=== PATIENT | female | born 1965 | race Caucasian/White ===

== ENCOUNTER 2021-08-02 21:41 | Inpatient (IN) ==
[2021-08-02] MEDS ORDERED: IPRATROPIUM/ALBUTEROL 3 ML AMPUL.NEB NEB ONE (22:12)
--- NOTE | 2021-08-02 22:18 | Emergency Department Note ---
HPI General Chief complaint: Shortness of Breath/Dyspnea Stated complaint: shortness of breath Time Seen by Provider: 08/02/21 21:46 Source: patient Mode of arrival: ambulatory Limitations: no limitations History of Present Illness HPI Narrative: Narrative: 55 yo F w/ h/o asthma, DM2, HTN, HLD, p/w SOB. She reports that over the past few days she has had constant SOB which is worse w/ exertion and laying flat, a nd incompletely relieved w/ nebulizers. She notes that this seems to have been triggered by house painting in her home. Her nebs are somewhat helpful but she notes that her duonebs have . She was seen at urgent care yesterday and Dx'd w/ an asthma exacerbation and started on steroids and abx. She reports that her Sx today are typical for an asthma exacerbation for her. She denies CP, peripheral edema, F/C/cough, immobilization, long distance travel, recent surgery. Related Data Home Medications Medication Instructions Recorded Confirmed omega-3 acid ethyl esters 1 gram 1 cap PO QAM 08/03/21 08/03/21 capsule Previous Rx's Medication Instructions Recorded albuterol sulfate 90 mcg/actuation See Rx Instructions .ROUTE 11/25/19 aerosol inhaler .COMPLEX #8.5 unknown measurement unit code: gram atorvastatin 20 mg tablet 20 mg PO QHS #90 tab 05/17/21 metformin 500 mg tablet See Rx Instructions .ROUTE 05/31/21 .COMPLEX #60 tab bupropion HCl 300 mg 24 hr tablet, 300 mg PO QAM #30 tab 06/14/21 extended release omeprazole 20 mg capsule,delayed 20 mg PO QDAY #90 cap 06/28/21 release lisinopril 20 mg tablet 20 mg PO QDAY #30 tab 07/20/21 fluticasone 500 mcg-salmeterol 50 1 inh INHALATION BID #60 each 07/26/21 mcg/dose blistr powdr for inhalation amoxicillin 875 mg-potassium 1 tab PO BID 5 Days #10 tab 08/01/21 clavulanate 125 mg tablet prednisone 50 mg tablet 50 mg PO QDAY 5 Days #5 tab 08/01/21 ipratropium 0.5 mg-albuterol 3 mg 3 ml INHALATION Q4H PRN #15 ml 08/02/21 (2.5 mg base)/3 mL nebulization soln Allergies Allergy/AdvReac Type Severity Reaction Status Date / Time mold Allergy Difficulty Verified 08/02/21 21:46 Breathing animals Allergy Itching Uncoded 07/22/21 13:04 Review of Systems ROS ROS Narrative: Narrative: All systems ED: reviewed and negative except as stated. [facility] Narrative Patient History Narrative: Narrative: Medical/Surgical/Family History All Active Problems (Updated 08/03/21 @ 00:36 by Matthew Lara MD) Acute dyspnea (Acute) Asthma exacerbation (Acute) Asthma exacerbation (Acute) Back pain of lumbar region with sciatica (Acute) Elevated liver enzymes (Acute) Elevated liver enzymes (Acute) Type 2 diabetes mellitus (Acute) Anxiety (Acute) Obesity (BMI 30-39.9) (Acute) Generalized anxiety disorder with panic attacks (Acute) Allergies (Chronic) Hyperlipidemia (Chronic) Hypertension (Chronic) Abdominal pain, RUQ (Chronic) Cigarette smoker motivated to quit (Chronic) GERD (gastroesophageal reflux disease) (Chronic) Psoriasis of scalp (Chronic) Epidermal inclusion cyst (Chronic) Loose stools (Chronic) Fatty liver (Chronic) Abdominal pain (Chronic) Sinus infection (Chronic) Hay fever (Chronic) High cholesterol (Chronic) Asthma (Chronic) Left pulmonary infiltrate on CXR (Chronic) Acute asthma exacerbation (Chronic) Viral upper respiratory tract infection (Chronic) Sidra infection (Chronic) Sinusitis, acute (Chronic) Medical History Abdominal pain Abdominal pain, RUQ Acute asthma exacerbation Allergies Asthma Sidra infection Cigarette smoker motivated to quit Combined abdominal and pelvic pain Dermatitis Right lower leg Epidermal inclusion cyst Fatty liver GERD (gastroesophageal reflux disease) Omeprazole x 3 months 06/28/21 Hay fever High cholesterol Hyperlipidemia TRIGs 314, adding fenofibrate to atorvastatin 06/28/21 Diet handouts provided, encourage low fat, exercise, weight reduction 06/28/21 Hypertension Trial of lisinopril 10mg daily x 3 weeks 06/28/21 Intermittent chest pain Left pulmonary infiltrate on CXR Loose stools Pneumonia Prediabetes Psoriasis of scalp Shingles outbreak ULQ, posterior Sinus infection Sinusitis, acute Viral upper respiratory tract infection Surgical History History of colonoscopy History of colonoscopy with polypectomy 07/17/2019 History of esophagogastroduodenoscopy (EGD) 07/17/2019 Family History Mother Heart disease Diabetes Asthma Emphysema lung Father Diabetes Heart disease Grandmother Heart disease Maternal Grandfather Asthma Paternal Social History Smoking Status: Former smoker Alcohol Intake Frequency: does not drink Substance Use: does not use Exam Narrative Narrative: Narrative: General Limitations: no limitations General appearance: Present alert and in no apparent distress Head Head: Present atraumatic and normocephalic ENT ENT: Present normal oropharynx and mucous membranes moist Chest Chest: Present normal inspection and symmetric chest wall rise Respiratory Respiratory: Present wheezes (B/L); Absent respiratory distress or accessory muscle use Cardiovascular Cardiovascular: Present regular rate, normal rhythm, +S1, +S2 and other (2+ B/L radial pulses); Absent systolic murmur or diastolic murmur Extremities Extremities: Absent pedal edema Neurological Neurological: Present alert and oriented X3 Psychiatric Psychiatric: Present normal affect Skin Skin: Present warm (WNL) and dry Course Vital Signs Vital signs: Vital Signs Temperature 100.2 F H 08/02/21 21:41 Pulse Rate 117 H 08/02/21 21:41 Respiratory Rate 20 08/02/21 21:41 Blood Pressure 132/66 08/02/21 21:41 Pulse Oximetry (%) 93 08/02/21 21:41 Temperature 96.7 F L 08/03/21 02:14 Pulse Rate 85 08/03/21 02:14 Respiratory Rate 16 08/03/21 02:14 Blood Pressure 133/66 08/03/21 02:14 Pulse Oximetry (%) 96 08/03/21 02:14 [facility] MDM Narrative Medical decision making narrative: 55 yo F w/ h/o asthma, DM2, HTN, HLD, p/w SOB. DDx- PE, ACS, PTX, PNA, asthma exacerbation Pt presented stable, w/ sats in the low 90s, in NAD. Her exam was notable for B/L wheezing, c/w asthma exacerbation. Wells score was 0. SOB as a manifestation of ACS was much less likely than asthma. There was no pulmonary or peripheral edema to suggest CHF. CXR showed no PNA or PTX. Overall her evaluation was c/w asthma exacerbation. I started Tx w/ duonebs but despite this her SaO2 actually trended down to the high 80s. I thus added on IV solumedrol but we could not wean her off O2. Thus I d/w Dr Luna who accepted her for admission. Lab Data Result diagrams: 08/02/21 23:08 Labs: Lab Results 08/02/21 08/02/21 Range/Units 23:08 23:08 WBC 10.7 (4.5-11.0) K/mcL RBC 4.69 (3.59-5.38) M/mcL Hgb 13.1 (11.2-15.7) g/dL Hct 39.7 (34.1-44.9) % POC Hct 39 (36-48) % MCV 84.6 (80.0-100.0) fL MCH 27.9 (26.0-34.0) pg MCHC 33.0 (31.0-36.0) g/dL RDW 13.0 (11.5-14.5) % Plt Count 289 (140-440) K/mcL MPV 9.6 (7.4-10.4) fL Neut % (Auto) 76.7 (38.0-78.0) % Lymph % (Auto) 17.6 (15.5-49.0) % [place] % (Auto) 5.1 (1.0-12.0) % Eos % (Auto) 0.1 (0.0-7.0) % Baso % (Auto) 0.5 (0.0-2.0) % Lymph # (Auto) 1.89 (1.50-4.80) K/mcL [place] # (Auto) 0.55 (0.10-0.90) K/mcL Eos # (Auto) 0.01 (0.00-0.70) K/mcL Baso # (Auto) 0.05 (0.00-0.30) K/mcL Absolute Neutrophils 8.21 H (1.80-8.00) K/mcL POC Sodium 133 (133-145) mEq/L POC Potassium 4.2 (3.3-5.1) mEql/L POC Chloride 100 (96-108) mEq/L POC Total CO2 24 (22-30) mmol/L POC BUN 17 (6-20) mg/dL POC Creatinine 1.0 (0.6-1.2) mg/dL POC Glucose 201 H (70-105) mg/dL POC WB Ioniz Calcium 1.09 L (1.16-1.32) mmEq/L ED POC Tests ED POC Tests: KAREL - Influenza A Negative KAREL - Influenza B Negative KAREL - SARS Antigen Negative Radiology Data Radiology results reviewed: Yes I reviewed the patient's radiology results. Discharge Plan Patient/Caregiver Discharge Instructions Pt seen by [employer] [employer]SULTANT/PA only: No Clinical Impression: Acute dyspnea, Asthma exacerbation Patient Disposition: [facility] Condition: Fair Discharge Date/Time: 08/03/21 02:08
[2021-08-02] MEDS ORDERED: methylPREDNISolone SOD SUCC 125 MG/2 ML VIAL IV ONE (22:50)
[2021-08-02 23:19] LABS: POC Blood Urea Nitrogen 17 mg/dL (6-20); POC CO2 24 mmol/L (22-30); POC Calcium, Ionized 1.09 mmEq/L (1.16-1.32); POC Chloride 100 mEq/L (96-108); POC Glucose, Random 201 mg/dL (70-105); POC Hematocrit 39 % (36-48); POC Potassium 4.2 mEql/L (3.3-5.1); POC Sodium 133 mEq/L (133-145)
[2021-08-03 00:13] LABS: Basophils # (Auto) 0.05 K/mcL (0.00-0.30); Basophils % (Auto) 0.5 % (0.0-2.0); Eosinophils # (Auto) 0.01 K/mcL (0.00-0.70); Eosinophils % (Auto) 0.1 % (0.0-7.0); Hematocrit 39.7 % (34.1-44.9); Hemoglobin 13.1 g/dL (11.2-15.7); Lymphocytes # (Auto) 1.89 K/mcL (1.50-4.80); Lymphocytes % (Auto) 17.6 % (15.5-49.0); Mean Cell Volume 84.6 fL (80.0-100.0); Mean Platelet Volume 9.6 fL (7.4-10.4); Monocytes # (Auto) 0.55 K/mcL (0.10-0.90); Monocytes % (Auto) 5.1 % (1.0-12.0); Neutrophils % (Auto) 76.7 % (38.0-78.0); Platelet Count 289 K/mcL (140-440); RBC 4.69 M/mcL (3.59-5.38); WBC 10.7 K/mcL (4.5-11.0)
[2021-08-03] MEDS ORDERED: IPRATROPIUM/ALBUTEROL 3 ML AMPUL.NEB NEB PRN (02:26)
--- NOTE | 2021-08-03 07:46 | XRay Report ---
HISTORY: Chest pain, asthma, short of breath FINDINGS: Right diaphragm is mildly elevated. This is a chronic stable finding. There is no evidence of pneumonia, mass or fibrosis. The heart size mediastinum and dianne are normal. There has been no change since 05/25/21. IMPRESSION: Normal exam Interpreted and Authenticated by: Gaston Hernandez 08/03/21
[2021-08-03] MEDS ORDERED: ALBUTEROL SULFATE 200 PUFF INHALER INH PRN ×2 (09:00→09:06)
[2021-08-03] MEDS ORDERED: guaiFENesin/DEXTROMETHORPHAN ORAL SOL PO PRN (09:06)
[2021-08-03] MEDS ORDERED: ACETAMINOPHEN 325 MG TABLET PO PRN (09:06)
[2021-08-03] MEDS ORDERED: ONDANSETRON 4 MG/2 ML VIAL IV PRN (09:06)
[2021-08-03] MEDS ORDERED: DEXTROSE 50% 50 ML VIAL IV PRN (09:06)
[2021-08-03] MEDS ORDERED: DEXTROSE 31 GM ORAL.SUSP PO PRN (09:06)
--- NOTE | 2021-08-03 09:07 | Internal Med History&Physical ---
HPI History of Present Illness Patient information: Note initiated : 08/03/21 at 9:06 am Service Date, if different from initiated Date: [] Patient: Nya Espitia a 55 y/o F admitted on 08/03/21 for shortness of breath. Chief Complaint: [] Chief complaint: shortness of breath History of present illness: Ms. Espitia is a 55 year old F history of asthma, type 2 diabetes mellitus, essential hypertension, mixed dyslipidemia, fatty liver disease, presenting with 1 week history of increasing shortness of breath and nonproductive cough. Last prior asthma exacerbation episode was years ago. Last , patient is started to notice increasing level of shortness of breath, chest tightness, nonproductive cough, wheezing after her pain in the house. The symptoms get worse on the following day after her continue to paint her house. She presented to urgent care 2 days ago and was being started on oral prednisone as well as rescue inhalers at which point she was using it every hour without much symptoms improved. As a result, she decided to come to our emergency room last night for further evaluations. Vital signs significant for mild tachypnea with rate of breathing in the mid 20s, with rest of the vital signs within normal limits. Labs were largely within normal limits. Dina negative. She was being placed on 3 L/min of supplemental oxygen and admission request was made for asthma exacerbation management. Constitutional Constitutional: Absent chills, excessive sweating, fatigue, fever(s) or weakness EENT Eyes: Absent blurry vision, change in vision, loss of vision or other visual disturbances Ears: Absent decreased hearing or tinnitus Nose, mouth and throat: Absent abnormal hearing, dry mouth, headache(s), nasal congestion or sore throat Cardiovascular Cardiovascular: Absent chest pain, chest pain at rest, edema, irregular heart rhythm or palpatations Respiratory Respiratory: Present cough, dyspnea and wheezing; Absent dyspnea on exertion or excessive phlegm production Gastrointestinal Gastrointestinal: Absent abdominal pain, constipation, diarrhea, nausea or vomiting Musculoskeletal Musculoskeletal: Absent back pain, deformity, limited range of motion, muscle cramps, muscle weakness or numbness Integumentary Integumentary: Absent lesions, rash or wounds Neurological Neurological: Absent focal weakness, headache(s) or numbness Psychiatric Psychiatric: Absent anxiety, depression or hallucinations PFSH PFSH All Active Problems (Updated 08/03/21 @ 00:36 by Matthew Lara MD) Acute dyspnea (Acute) Asthma exacerbation (Acute) Asthma exacerbation (Acute) Back pain of lumbar region with sciatica (Acute) Elevated liver enzymes (Acute) Elevated liver enzymes (Acute) Type 2 diabetes mellitus (Acute) Anxiety (Acute) Obesity (BMI 30-39.9) (Acute) Generalized anxiety disorder with panic attacks (Acute) Allergies (Chronic) Hyperlipidemia (Chronic) Hypertension (Chronic) Abdominal pain, RUQ (Chronic) Cigarette smoker motivated to quit (Chronic) GERD (gastroesophageal reflux disease) (Chronic) Psoriasis of scalp (Chronic) Epidermal inclusion cyst (Chronic) Loose stools (Chronic) Fatty liver (Chronic) Abdominal pain (Chronic) Sinus infection (Chronic) Hay fever (Chronic) High cholesterol (Chronic) Asthma (Chronic) Left pulmonary infiltrate on CXR (Chronic) Acute asthma exacerbation (Chronic) Viral upper respiratory tract infection (Chronic) Sidra infection (Chronic) Sinusitis, acute (Chronic) Medical History Abdominal pain Abdominal pain, RUQ Acute asthma exacerbation Allergies Asthma Sidra infection Cigarette smoker motivated to quit Combined abdominal and pelvic pain Dermatitis Right lower leg Epidermal inclusion cyst Fatty liver GERD (gastroesophageal reflux disease) Omeprazole x 3 months 06/28/21 Hay fever High cholesterol Hyperlipidemia TRIGs 314, adding fenofibrate to atorvastatin 06/28/21 Diet handouts provided, encourage low fat, exercise, weight reduction 06/28/21 Hypertension Trial of lisinopril 10mg daily x 3 weeks 06/28/21 Intermittent chest pain Left pulmonary infiltrate on CXR Loose stools Pneumonia Prediabetes Psoriasis of scalp Shingles outbreak ULQ, posterior Sinus infection Sinusitis, acute Viral upper respiratory tract infection Surgical History History of colonoscopy History of colonoscopy with polypectomy 07/17/2019 History of esophagogastroduodenoscopy (EGD) 07/17/2019 Family History Mother Heart disease Diabetes Asthma Emphysema lung Father Diabetes Heart disease Grandmother Heart disease Maternal Grandfather Asthma Paternal Social History marital status: occupational status: employed occupation: Teacher other: 3 Children physical activity: none alcohol intake frequency: does not drink substance use type: does not use seatbelt use: always MEDS/ALLERGIES Home Medications and Allergies Home Medications Medication Instructions Recorded Confirmed Type albuterol sulfate 90 mcg/actuation See Rx Instructions .ROUTE 11/25/19 08/03/21 Rx aerosol inhaler .COMPLEX #8.5 unknown measurement unit code: gram atorvastatin 20 mg tablet 20 mg PO QHS #90 tab 05/17/21 08/03/21 Rx metformin 500 mg tablet See Rx Instructions .ROUTE 05/31/21 08/03/21 Rx .COMPLEX #60 tab bupropion HCl 300 mg 24 hr tablet, 300 mg PO QAM #30 tab 06/14/21 08/03/21 Rx extended release omeprazole 20 mg capsule,delayed 20 mg PO QDAY #90 cap 06/28/21 08/03/21 Rx release lisinopril 20 mg tablet 20 mg PO QDAY #30 tab 07/20/21 08/03/21 Rx fluticasone 500 mcg-salmeterol 50 1 inh INHALATION BID #60 each 07/26/21 08/03/21 Rx mcg/dose blistr powdr for inhalation amoxicillin 875 mg-potassium 1 tab PO BID 5 Days #10 tab 08/01/21 08/03/21 Rx clavulanate 125 mg tablet prednisone 50 mg tablet 50 mg PO QDAY 5 Days #5 tab 08/01/21 08/03/21 Rx ipratropium 0.5 mg-albuterol 3 mg 3 ml INHALATION Q4H PRN #15 ml 08/02/21 08/03/21 Rx (2.5 mg base)/3 mL nebulization soln omega-3 acid ethyl esters 1 gram 1 cap PO QAM 08/03/21 08/03/21 History capsule Allergies Allergy/AdvReac Type Severity Reaction Status Date / Time mold Allergy Intermediate Difficulty Verified 08/03/21 06:34 Breathing EXAM Constitutional Vitals: Temp Pulse Resp BP Pulse Ox 36.7 C 85 20 136/72 97 08/03/21 07:47 08/03/21 07:47 08/03/21 07:47 08/03/21 07:47 08/03/21 07:47 General appearance: average body habitus, cooperative and mild distress Head Head exam: Present atraumatic and normocephalic Eye Eye exam: Present EOMI and PERRL ENT ENT exam: Present mucous membranes moist, normal exam and normal external ear exam Additional comments: Nasal cannula in place Neck Neck exam: Present normal inspection; Absent lymphadenopathy, tenderness or thyromegaly Respiratory Respiratory exam: Present decreased breath sounds and wheezes; Absent accessory muscle use or respiratory distress Cardiovascular Cardiovascular exam: Present normal rate and rhythm; Absent JVD GI/Abdominal GI/Abdominal exam: Present normal bowel sounds and soft; Absent organomegaly or tenderness Extremities Exam Extremities exam: Present full ROM, normal capillary refill and normal inspection; Absent tenderness Neurological Exam Neurological exam: Present alert, CN II-XII intact and oriented X3; Absent motor sensory deficit Psychiatric Psychiatric exam: Present normal affect and normal mood; Absent anxious or depressed Skin Skin exam: Present dry and intact DATA Data Completed and Pending Labs: Labs from last 24 hours 08/02/21 08/02/21 23:08 23:08 WBC 10.7 RBC 4.69 Hgb 13.1 Hct 39.7 POC Hct 39 MCV 84.6 MCH 27.9 MCHC 33.0 RDW 13.0 Plt Count 289 MPV 9.6 Neut % (Auto) 76.7 Lymph % (Auto) 17.6 [place] % (Auto) 5.1 Eos % (Auto) 0.1 Baso % (Auto) 0.5 Lymph # (Auto) 1.89 [place] # (Auto) 0.55 Eos # (Auto) 0.01 Baso # (Auto) 0.05 Absolute Neutrophils 8.21 H POC Sodium 133 POC Potassium 4.2 POC Chloride 100 POC Total CO2 24 POC BUN 17 POC Creatinine 1.0 POC Glucose 201 H POC WB Ioniz Calcium 1.09 L A/P Assessment and plan (1) Asthma exacerbation: Status: Acute (2) Type 2 diabetes mellitus: Status: Acute Comment: A1c 6.2% 06/28/21 Qualifiers: Diabetes mellitus residential insulin use: without residential use Diabetes mellitus complication status: without complication Qualified Code(s): E11.9 - Type 2 diabetes mellitus without complications (3) Anxiety: Status: Acute (4) Hyperlipidemia: Status: Chronic Comment: TRIGs 314, adding fenofibrate to atorvastatin 06/28/21 Diet handouts provided, encourage low fat, exercise, weight reduction 06/28/21 Qualifiers: Hyperlipidemia type: mixed hyperlipidemia Qualified Code(s): E78.2 - Mixed hyperlipidemia (5) GERD (gastroesophageal reflux disease): Status: Chronic Comment: Omeprazole x 3 months 06/28/21 (6) Hypertension: Status: Chronic Comment: Trial of lisinopril 10mg daily x 3 weeks 06/28/21 Qualifiers: Hypertension type: essential hypertension Qualified Code(s): I10 - Essential (primary) hypertension Narrative A/P Narrative: Assessment and Plans: 1. Asthma exacerbation: Inpatient med surg Supplemental oxygen therapy titrate to achieve spo2>=92%, currently on 3L/min DuoNEB NEB scheduled Albuterol INH PRN wheezing Prednisone Robitussin DM PRN cough 2. Essential HTN: Lisinopril 3. Mixed dyslipidemia: Continue statin therapy 4. Anxiety: Bupropion 5. T2DM: HgA1c Hold Metformin Low dose sliding scale insulin AC HS Accu Chek AC HS Hypoglycemia protocol Diabetic diet 6. GERD: Continue oral PPI from home regimen GI ppx: Continue oral PPI from home regimen DVT ppx: Lovenox Code status: Full Prognosis: guarded Disposition: inpatient med surg Time Spent With Patient Time: Total time spent is greater than 50% in coordination of care (as documented) at patient's floor/unit and/or counseling patient: Total time spent with greater than 50% in coordination of care (as documented) at patient's floor/unit and/or counseling patient:: 35 - 50 minutes QUALITY Stroke Symptom Onset Unknown: No VTE Deep Vein Thrombosis/Pulmonary Embolism Present on Admission: No
[2021-08-03] MEDS: IPRATROPIUM/ALBUTEROL 3 ML AMPUL.NEB NEB SCH ×3 (09:16→20:52)
[2021-08-03] MEDS: OMEPRAZOLE 20 MG CAPSULE PO SCH (09:27)
[2021-08-03] MEDS: LISINOPRIL 20 MG TABLET PO SCH (09:27)
[2021-08-03] MEDS: FLUTICASONE/SALMETEROL 500/50 INHALER #14 INH SCH ×2 (09:28→21:12)
[2021-08-03 09:50] LABS: Hemoglobin A1C 6.7 % Hgb (4.0-6.0)
[2021-08-03] MEDS: buPROPion 150 MG TAB.XL.24H PO SCH (11:00)
[2021-08-03] MEDS: INSULIN LISPRO 1 UNIT/0.01 ML UNIT SQ SCH ×3 (11:54→21:11)
[2021-08-03] MEDS: 0.9 % SODIUM CHLORIDE 10 ML SYRINGE IV SCH ×2 (17:03→21:11)
[2021-08-03] MEDS: ATORVASTATIN 20 MG TABLET PO SCH (21:11)
[2021-08-03] MEDS: SENNOSIDES 1 TABLET PO SCH (21:11)
[2021-08-03] MEDS: DOCUSATE SODIUM 100 MG CAPSULE PO SCH (21:12)
[2021-08-04] MEDS: ZOLPIDEM 5 MG TABLET PO PRN ×2 (00:51→21:34)
[2021-08-04] MEDS: 0.9 % SODIUM CHLORIDE 10 ML SYRINGE IV SCH ×3 (06:15→20:46)
[2021-08-04] MEDS: IPRATROPIUM/ALBUTEROL 3 ML AMPUL.NEB NEB SCH ×4 (07:39→21:18)
[2021-08-04] MEDS: INSULIN LISPRO 1 UNIT/0.01 ML UNIT SQ SCH ×4 (08:03→20:48)
[2021-08-04] MEDS: DOCUSATE SODIUM 100 MG CAPSULE PO SCH ×2 (08:06→20:46)
[2021-08-04] MEDS: FISH OIL 1,000 MG CAPSULE PO SCH (08:54)
[2021-08-04] MEDS: predniSONE 20 MG TABLET PO SCH (08:54)
[2021-08-04] MEDS: LISINOPRIL 20 MG TABLET PO SCH (08:54)
[2021-08-04] MEDS: OMEPRAZOLE 20 MG CAPSULE PO SCH (08:54)
[2021-08-04] MEDS: buPROPion 150 MG TAB.XL.24H PO SCH (08:55)
[2021-08-04] MEDS: ENOXAPARIN 40 MG/0.4 ML SYRINGE SQ SCH (08:57)
[2021-08-04] MEDS: FLUTICASONE/SALMETEROL 500/50 INHALER #14 INH SCH ×2 (10:04→20:48)
[2021-08-04] MEDS ORDERED: LORazepam 1 MG TABLET PO PRN (10:54)
--- NOTE | 2021-08-04 10:54 | Internal Med Progress Note ---
SUBJECTIVE Subjective Patient information: Note initiated : 08/04/21 at 10:53 am Service Date, if different from initiated Date: [] Patient: Nya Espitia a 55 y/o F admitted on 08/03/21 for shortness of breath. Chief Complaint: [] Interval history: Ms. Espitia is a 55 year old F history of asthma, type 2 diabetes mellitus, essential hypertension, mixed dyslipidemia, fatty liver disease, presenting with 1 week history of increasing shortness of breath and nonproductive cough. Last prior asthma exacerbation episode was years ago. Last , patient is started to notice increasing level of shortness of breath, chest tightness, nonproductive cough, wheezing after her pain in the house. The symptoms get worse on the following day after her continue to paint her house. She presented to urgent care 2 days ago and was being started on oral prednisone as well as rescue inhalers at which point she was using it every hour without much symptoms improved. As a result, she decided to come to our emergency room last night for further evaluations. Vital signs significant for mild tachypnea with rate of breathing in the mid 20s, with rest of the vital signs within normal limits. Labs were largely within normal limits. Dina negative. She was being placed on 3 L/min of supplemental oxygen and admission request was made for asthma exacerbation management. 08/04: On 0.5L/min oxygen therapy. c/o shortness of breath, chest tightness, nonproductive cough, wheezing. Denies anxiety or agitation. Denies fever or chills. Continue bronchodilators, Prednisone, supplemental oxygen therapy. Constitutional Vitals: Vital Signs Temp Pulse Resp BP Pulse Ox 36.3 C 87 14 119/66 96 08/04/21 07:36 08/04/21 07:39 08/04/21 07:39 08/04/21 07:36 08/04/21 07:39 Period Temp Pulse Resp BP Sys/Crisostomo Pulse Ox Last 24 Hr 36.3 C-37.1 C 71-103 14-20 114-129/61-79 92-100 Intake and Output 08/03/21 08/04/21 08/04/21 21:59 05:59 13:59 Intake Total 740 600 Output Total 600 Balance 740 0 Weight 85.82 kg Intake & Output: Intake & Output 08/03/21 08/04/2108/04/22 21:59 05:59 13:59 Intake Total 740 600 Output Total 600 Balance 740 0 Weight 85.82 kg Intake: Oral 740 600 Output: Void Amount 600 Other: Meal Dinner Percent of Meal Consumed 100% Feeding Ability Assist with Tray Set Up Urine Appearance Clear Urine Color Bright Yellow General appearance: average body habitus, cooperative and no acute distress Head Head exam: Present atraumatic and normal inspection Eye Eye exam: Present normal appearance ENT ENT exam: Present mucous membranes moist, normal exam and normal external ear exam Neck Neck exam: Present normal inspection Respiratory Respiratory exam: Present wheezes; Absent normal respiratory exam Cardiovascular Cardiovascular exam: Present normal rate and rhythm GI/Abdominal GI/Abdominal exam: Present normal bowel sounds Back Exam Back exam: Present normal inspection Neurological Exam Neurological exam: Present alert and oriented X3 Skin Skin exam: Present intact and warm OBJ DATA Labs CBC & Chem 7: 08/02/21 23:08 Labs: Abnormal Lab Results 08/02/21 08/02/21 08/02/21 23:08 23:08 23:08 Absolute Neutrophils 8.21 H POC Glucose 201 H Hemoglobin A1c 6.7 H POC WB Ioniz Calcium 1.09 L Meds: Medications Acetaminophen (Acetaminophen 325 Mg Tablet) 650 mg PO Q6HP PRN; Protocol PRN Reason: Per Pain Protocol/Fever > 101 Albuterol Sulfate (Albuterol Sulfate 200 Puff Inhaler) 1 puff INH Q2HP PRN PRN Reason: Shortness Of Breath Albuterol/Ipratropium (Ipratropium/Albuterol 3 Ml Ampul.Neb) 3 ml NEB Q4HP [facility] Last Admin: 08/04/21 07:39 Dose: 3 ml Documented by: Atorvastatin Calcium (Atorvastatin 20 Mg Tablet) 20 mg PO QHS [facility] Last Admin: 08/03/21 21:11 Dose: 20 mg Documented by: Bupropion HCl (Bupropion 150 Mg Tab.Xl.24h) 300 mg PO DAILY [facility] Last Admin: 08/04/21 08:55 Dose: 300 mg Documented by: Dextrose (Dextrose 50% 50 Ml Vial) 0 ml IV UD PRN PRN Reason: Per Sliding Scale Diagnostic Test (Pha) (Accu-Chek 1 Each Strip) 1 each FS ACHS [facility] Last Admin: 08/04/21 08:01 Dose: 1 each Documented by: Docusate Sodium (Docusate Sodium 100 Mg Capsule) 100 mg PO BID [facility] Last Admin: 08/04/21 08:06 Dose: Not Given Documented by: Enoxaparin Sodium (Enoxaparin 40 Mg/0.4 Ml Syringe) 40 mg SQ DAILY [facility] Last Admin: 08/04/21 08:57 Dose: 40 mg Documented by: Fish Oil (Fish Oil 1,000 Mg Capsule) 1,000 mg PO DAILY [facility] Last Admin: 08/04/21 08:54 Dose: 1,000 mg Documented by: Glucose (Dextrose 31 Gm Oral.Susp) 15 gm PO PRN PRN PRN Reason: Hypoglycemia Guaifenesin (Guaifenesin/Dextromethorphan Oral Shira) 10 ml PO Q4HP PRN PRN Reason: Cough Insulin Human Lispro (Insulin Lispro 1 Unit/0.01 Ml Unit) 0 unit SQ ACHS [facility]; Protocol Last Admin: 08/04/21 08:03 Dose: Not Given Documented by: Lisinopril (Lisinopril 20 Mg Tablet) 20 mg PO QDAY [facility] Last Admin: 08/04/21 08:54 Dose: 20 mg Documented by: Omeprazole (Omeprazole 20 Mg Capsule) 20 mg PO QDAY [facility] Last Admin: 08/04/21 08:54 Dose: 20 mg Documented by: Ondansetron HCl (Ondansetron 4 Mg/2 Ml Vial) 4 mg IV Q6HP PRN PRN Reason: Nausea And Vomiting Prednisone (Prednisone 20 Mg Tablet) 40 mg PO [facility] Last Admin: 08/04/21 08:54 Dose: 40 mg Documented by: Fluticasone/Salmeterol (Fluticasone/Salmeterol 500/50 Inhaler #14) 1 puff INH BID [facility] Last Admin: 08/04/21 10:04 Dose: 1 puff Documented by: Senna (Sennosides 1 Tablet) 2 tab PO [facility] Last Admin: 08/03/21 21:11 Dose: Not Given Documented by: Sodium Chloride (0.9 % Sodium Chloride 10 Ml Syringe) 10 ml IV Q8 [facility] Last Admin: 08/04/21 06:15 Dose: 10 ml Documented by: Zolpidem Tartrate (Zolpidem 5 Mg Tablet) 5 mg PO HSP PRN PRN Reason: Insomnia Last Admin: 08/04/21 00:51 Dose: 5 mg Documented by: A/P Assessment and plan (1) Asthma exacerbation: Status: Acute (2) Type 2 diabetes mellitus: Status: Acute Comment: A1c 6.2% 06/28/21 Qualifiers: Diabetes mellitus long term care social worker insulin use: without long term care social worker use Diabetes mellitus complication status: without complication Qualified Code(s): E11.9 - Type 2 diabetes mellitus without complications (3) Anxiety: Status: Acute (4) Hyperlipidemia: Status: Chronic Comment: TRIGs 314, adding fenofibrate to atorvastatin 06/28/21 Diet handouts provided, encourage low fat, exercise, weight reduction 06/28/21 Qualifiers: Hyperlipidemia type: mixed hyperlipidemia Qualified Code(s): E78.2 - Mixed hyperlipidemia (5) GERD (gastroesophageal reflux disease): Status: Chronic Comment: Omeprazole x 3 months 06/28/21 (6) Hypertension: Status: Chronic Comment: Trial of lisinopril 10mg daily x 3 weeks 06/28/21 Qualifiers: Hypertension type: essential hypertension Qualified Code(s): I10 - Essential (primary) hypertension Narrative A/P Narrative: Assessment and Plans: 1. Asthma exacerbation: Inpatient med surg Supplemental oxygen therapy titrate to achieve spo2>=92%, currently on 0.5L/min DuoNEB NEB scheduled Albuterol INH PRN wheezing Prednisone Robitussin DM PRN cough 2. Essential HTN: Lisinopril 3. Mixed dyslipidemia: Continue statin therapy 4. Anxiety: Bupropion 5. T2DM: HgA1c Hold Metformin Low dose sliding scale insulin AC HS Accu Chek AC HS Hypoglycemia protocol Diabetic diet 6. GERD: Continue oral PPI from home regimen GI ppx: Continue oral PPI from home regimen DVT ppx: Lovenox Code status: Full Prognosis: guarded Disposition: inpatient med surg Time Spent With Patient Time: Total time spent is greater than 50% in coordination of care (as documented) at patient's floor/unit and/or counseling patient: Total time spent with greater than 50% in coordination of care (as documented) at patient's floor/unit and/or counseling patient:: 35 - 50 minutes QUALITY Stroke Symptom Onset Unknown: No VTE Deep Vein Thrombosis/Pulmonary Embolism Present on Admission: No
[2021-08-04] MEDS: SENNOSIDES 1 TABLET PO SCH (20:46)
[2021-08-04] MEDS: ATORVASTATIN 20 MG TABLET PO SCH (20:46)
[2021-08-05] MEDS: IPRATROPIUM/ALBUTEROL 3 ML AMPUL.NEB NEB SCH ×3 (00:48→09:03)
[2021-08-05] MEDS: 0.9 % SODIUM CHLORIDE 10 ML SYRINGE IV SCH (04:53)
[2021-08-05] MEDS: INSULIN LISPRO 1 UNIT/0.01 ML UNIT SQ SCH ×2 (07:51→11:54)
[2021-08-05] MEDS: predniSONE 20 MG TABLET PO SCH (09:00)
[2021-08-05] MEDS: buPROPion 150 MG TAB.XL.24H PO SCH (09:00)
[2021-08-05] MEDS: FISH OIL 1,000 MG CAPSULE PO SCH (09:00)
[2021-08-05] MEDS: LISINOPRIL 20 MG TABLET PO SCH (09:00)
[2021-08-05] MEDS: OMEPRAZOLE 20 MG CAPSULE PO SCH (09:00)
[2021-08-05] MEDS: DOCUSATE SODIUM 100 MG CAPSULE PO SCH (09:01)
[2021-08-05] MEDS: ENOXAPARIN 40 MG/0.4 ML SYRINGE SQ SCH (09:02)
[2021-08-05] MEDS: FLUTICASONE/SALMETEROL 500/50 INHALER #14 INH SCH (09:22)
--- NOTE | 2021-08-05 11:21 | Discharge Summary ---
Discharge Provider Provider Patient information: Note initiated : 08/05/21 at 11:17 am Service Date, if different from initiated Date: [] Patient: Nya Espitia 55 y/o F admitted on 08/03/21 for shortness of breath. Chief Complaint: [] Date of admission: 08/03/21 02:08 Discharge date: 08/05/21 Primary care physician: JONATAN Mayorga Consults: 08/03/21 Consult to Physician [CONS] Stat Comment: Consulting Provider: Fredy Luna Reason For Exam: Physician to Consult Attending physician on discharge: Alexy Olivo Discharging clinician: Alexy Olivo Discharge Meds Discharge Medications Home Medications albuterol sulfate 90 mcg/actuation aerosol inhaler See Rx Instructions .ROUTE .COMPLEX #8.5 unknown measurement unit code: oscar 11/25/19 [Rx Confirmed 08/03/21 Last Taken 08/02/21 22:00] atorvastatin 20 mg tablet 20 mg PO QHS #90 tab 05/17/21 [Rx Confirmed 08/03/21 Last Taken 08/02/21 09:00] metformin 500 mg tablet See Rx Instructions .ROUTE .COMPLEX #60 tab 05/31/21 [Rx Confirmed 08/03/21 Last Taken 08/02/21 09:00] bupropion HCl 300 mg 24 hr tablet, extended release 300 mg PO QAM #30 tab 06/14/21 [Rx Confirmed 08/03/21 Last Taken 08/02/21 09:00] omeprazole 20 mg capsule,delayed release 20 mg PO QDAY #90 cap 06/28/21 [Rx Confirmed 08/03/21 Last Taken 08/02/21 09:00] lisinopril 20 mg tablet 20 mg PO QDAY #30 tab 07/20/21 [Rx Confirmed 08/03/21 Last Taken 08/02/21 09:00] fluticasone 500 mcg-salmeterol 50 mcg/dose blistr powdr for inhalation 1 inh INHALATION BID #60 each 07/26/21 [Rx Confirmed 08/03/21 Last Taken 08/02/21 09:00] ipratropium 0.5 mg-albuterol 3 mg (2.5 mg base)/3 mL nebulization soln 3 ml INHALATION Q4H PRN #15 ml 08/02/21 [Rx Confirmed 08/03/21 Last Taken 08/02/21 21:00] omega-3 acid ethyl esters 1 gram capsule 1 cap PO QAM 08/03/21 [History Confirmed 08/03/21 Last Taken 08/02/21 09:00] prednisone 20 mg tablet See Rx Instructions .ROUTE .COMPLEX #24 tab 08/05/21 [Rx Last Taken Unknown] COURSE Hospital Course Hospital course: Ms. Espitia is a 55 year old F history of asthma, type 2 diabetes mellitus, essential hypertension, mixed dyslipidemia, fatty liver disease, presenting with 1 week history of increasing shortness of breath and nonproductive cough. Last prior asthma exacerbation episode was years ago. Last , patient is started to notice increasing level of shortness of breath, chest tightness, nonproductive cough, wheezing after her pain in the house. The symptoms get worse on the following day after her continue to paint her house. She presented to urgent care 2 days ago and was being started on oral prednisone as well as rescue inhalers at which point she was using it every hour without much symptoms improved. As a result, she decided to come to our emergency room last night for further evaluations. Vital signs significant for mild tachypnea with rate of breathing in the mid 20s, with rest of the vital signs within normal limits. Labs were largely within normal limits. Dina negative. She was being placed on 3 L/min of supplemental oxygen and admission request was made for asthma exacerbation management. She responded well to prednisone oral therapy and was eventually weaned to room air. She feels the trigger for this asthma exacerbation is exposure to paint fumes in her garage. She does not have very many asthma exacerbations (less than 1/year). She has albuterol rescue inhaler at home. She has a nebulizer machine with enough vials of albuterol and ipratropium. I will discharge her on prednisone 40 mg daily for 4 days, followed by 30 mg a day for 4 days, 20 mg a day for 4 days and 10 mg for 4 days and stop. If she does have persistent asthma symptoms after the completion of steroid therapy, I would recommend she obtain a CT scan of the chest at that point. Advised to use nebulizer at least 4 times daily at home until better. We have made a follow-up appointment with her primary care provider. Discharge diagnosis: Asthma exacerbation Time Spent with Patient Time attestation: Total time spent providing and/or coordinating discharge services: Time spent: Less than 30 minutes EXAM Constitutional Vitals: Temp Pulse Resp BP Pulse Ox 97.1 F 88 17 135/77 95 08/05/21 07:58 08/05/21 09:05 08/05/21 09:05 08/05/21 07:58 08/05/21 09:05 General appearance: average body habitus, cooperative and no acute distress Head Head exam: Present atraumatic and normocephalic Eye Eye exam: Present EOMI Respiratory Respiratory exam: Present prolonged expiratory phase and wheezes; Absent accessory muscle use, CTAB or respiratory distress Additional comments: No conversational dyspnea noted. Cardiovascular Cardiovascular exam: Present normal rate and rhythm and RRR Discharge Data Data Completed and Pending Labs on day of discharge: Preliminary micro results at discharge 08/02/21 23:35 Blood Culture - Preliminary Blood 08/02/21 23:30 Blood Culture - Preliminary Blood Discharge Plan Patient/Caregiver Discharge Instructions Activity: increase activity as tolerated Diet: Regular Diet Instructions: Asthma (GEN) Prescriptions: New prednisone 20 mg Tablet See Rx Instructions .ROUTE .COMPLEX Qty: 24 0RF Rx Instructions: 30mg daily for 4 days followed by 20mg daily for 4 days Followed by 10 mg daily for 4 days and stop Continued albuterol sulfate 90 mcg/actuation HFA aerosol inhaler See Rx Instructions .ROUTE .COMPLEX Qty: 8.5 2RF Dose Instruction: INHALE 2 PUFFS BY MOUTH EVERY 6 HOURS NEEDED FOR SHORTNESS OF BREATH ADMINISTER WITH A SPACER Rx Instructions: INHALE 2 PUFFS BY MOUTH EVERY 6 HOURS NEEDED FOR SHORTNESS OF BREATH ADMINISTER WITH A SPACER atorvastatin 20 mg tablet 20 mg PO QHS Qty: 90 0RF metformin 500 mg tablet See Rx Instructions .ROUTE .COMPLEX Qty: 60 2RF Dose Instruction: TAKE 1 TABLET BY MOUTH TWICE DAILY - TAKE WITH BREAKFAST Rx Instructions: TAKE 1 TABLET BY MOUTH TWICE DAILY - TAKE WITH BREAKFAST bupropion HCl 300 mg tablet extended release 24 hr 300 mg PO QAM Qty: 30 2RF lisinopril 20 mg tablet 20 mg PO QDAY Qty: 30 0RF fluticasone propion-salmeterol 500-50 mcg/dose blister with device 1 inh inhalation BID Qty: 60 1RF ipratropium-albuterol 0.5 mg-3 mg(2.5 mg base)/3 mL solution for nebulization 3 ml INHALATION Q4H PRN (Reason: Shortness Of Breath) Qty: 15 3RF Rx Instructions: use 1 vial via Neb every 4 hours as needed for SOB omeprazole 20 mg capsule,delayed release(DR/EC) 20 mg PO QDAY Qty: 90 0RF omega-3 acid ethyl esters 1 gram capsule 1 cap PO QAM 0RF Discontinued amoxicillin-pot clavulanate 875-125 mg tablet 1 tab PO BID 5 Days Qty: 10 0RF prednisone 50 mg tablet 50 mg PO QDAY 5 Days Qty: 5 0RF Follow Up Plan Follow up with: Caterina Lynne ARNP [Primary Care Provider] - 08/15/21 1:00 pm Patient Disposition: Home, Self-Care Prognosis: Fair Overall status at discharge: patient is progressing back to baseline Discharge Orders: Discharge Order (Routine); Ordered 08/05/21 Ordered By: Alexy FERRARI VTE Deep Vein Thrombosis/Pulmonary Embolism Present on Admission: No
== END 2021-08-05 12:20 | disposition home or self-care (01) | DRG 203 ==
LOC: ED 21:41 → MEDSUR 08-03 02:08
PROVIDERS: ADMIT Internal Medicine; ATTEND Internal Medicine Medical Oncology